=== PATIENT | male | born 1935 | race Caucasian/White ===

== ENCOUNTER 2023-10-27 13:56 | Inpatient (IN) | payer OTHER ==
[2023-10-27 15:35] LABS: #Basophils 0.1 10x3/uL (0.0-0.2); #Monocytes 0.9 10x3/uL (0.0-1.1); #Neutrophils 11.4 10x3/uL (1.5-8.4); %Basophils 0.4 % (0.0-2.0); %Eosinophils 0.1 % (0.0-6.0); %Lymphocytes 20.3 % (18.0-47.0); %Monocytes 5.6 % (0.0-10.0); %Neutrophils 72.9 % (40.0-75.0); Hematocrit 39.8 % (38.8-50.0); Hemoglobin 13.2 g/dL (13.5-17.5); Mean Corpuscular HGB CONC 33.2 g/dL (32.0-36.0); Mean Corpuscular Hemoglobin 28.4 pg (27.0-33.0); Mean Corpuscular Volume 85.6 fl (81.2-95.1); Mean Platelet Volume 12.4 fl (7.4-10.4); Platelet Count 389 10x3/uL (150-450); RBC Distribution Width 17.4 % (11.5-14.5); Red Blood Cell (RBC) Count 4.65 10x6/uL (4.32-5.72); White Blood Cell (WBC) Count 15.6 10x3/uL (3.5-10.5)
[2023-10-27 15:49] LABS: ALT (SGPT) 13 U/L (8-55); AST (SGOT) 41 U/L (5-34); Alkaline Phosphatase 401 U/L (40-110); Anion Gap 16 mmol/L (10-20); BUN (Urea Nitrogen) 39 mg/dL (8.4-25.7); Bilirubin, Total 1.4 mg/dL (0.2-1.2); Calc. Creatinine Clearance 0 mL/min (70-130); Calcium 8.7 mg/dL (7.8-10.44); Carbon Dioxide 24 mmol/L (23-31); Chloride 99 mmol/L (98-107); Estimated GFR 37; Globulin 3.5 g/dL (2.4-3.5); Glucose 140 mg/dL (83-110); Potassium 3.5 mmol/L (3.5-5.1); Protein, Total 6.5 g/dL (5.8-8.1); Sodium 135 mmol/L (136-145)
[2023-10-27 15:51] LABS: Acetaminophen Less than 10 mcg/mL (10.0-30.0); Alcohol Less than 10.0 mg/dL (Less than 10); Lipase 33 U/L (8-78); Salicylate Less than 8.0 mg/dL (15.0-30.0)
[2023-10-27 15:53] LABS: Troponin I 0.043 ng/mL (< 0.028)
[2023-10-27 16:43] LABS: Influenza A by NAA Not Detected (NotDetected); Influenza B by NAA Not Detected (NotDetected); SARS-CoV-2 NAA Rapid Test Not Detected (NotDetected)
[2023-10-27 17:33] LABS: Troponin I 0.044 ng/mL (< 0.028)
[2023-10-27] MEDS ORDERED: Dextrose 5% in Water 1,000 ML IV PRN (17:57)
[2023-10-27] MEDS ORDERED: Senokot S 8.6-50 MG TAB PO PRN (17:57)
[2023-10-27] MEDS ORDERED: Glucagon 1 MG/ML KIT IM PRN (17:57)
[2023-10-27] MEDS ORDERED: Dextrose 50% Abboject 50 ML SYRINGE SLOW IVP PRN (17:57)
[2023-10-27 18:36] LABS: Lactic Acid 1.5 mmol/L (0.5-2.2)
[2023-10-27] MEDS: Sodium Chloride 0.9% 1,000 ML IV SCH (23:01)
[2023-10-27] MEDS: Famotidine 20 MG TAB PO SCH (23:01)
[2023-10-28 00:32] VITALS: BMI 22.4
[2023-10-28 05:04] LABS: #Basophils 0.1 10x3/uL (0.0-0.2); #Monocytes 0.9 10x3/uL (0.0-1.1); #Neutrophils 10.4 10x3/uL (1.5-8.4); %Basophils 0.3 % (0.0-2.0); %Eosinophils 0.1 % (0.0-6.0); %Lymphocytes 25.5 % (18.0-47.0); %Monocytes 5.6 % (0.0-10.0); Hematocrit 38.8 % (38.8-50.0); Hemoglobin 13.1 g/dL (13.5-17.5); Mean Corpuscular HGB CONC 33.8 g/dL (32.0-36.0); Mean Corpuscular Hemoglobin 28.7 pg (27.0-33.0); Mean Corpuscular Volume 84.9 fl (81.2-95.1); Platelet Count 370 10x3/uL (150-450); RBC Distribution Width 17.3 % (11.5-14.5); Red Blood Cell (RBC) Count 4.57 10x6/uL (4.32-5.72); White Blood Cell (WBC) Count 15.3 10x3/uL (3.5-10.5)
[2023-10-28 05:09] LABS: ALT (SGPT) 11 U/L (8-55); AST (SGOT) 34 U/L (5-34); Albumin 2.7 g/dL (3.4-4.8); Alkaline Phosphatase 360 U/L (40-110); Anion Gap 13 mmol/L (10-20); BUN (Urea Nitrogen) 37 mg/dL (8.4-25.7); Bilirubin, Total 1.2 mg/dL (0.2-1.2); Calc. Creatinine Clearance 38 mL/min (70-130); Calcium 8.4 mg/dL (7.8-10.44); Carbon Dioxide 23 mmol/L (23-31); Chloride 101 mmol/L (98-107); Estimated GFR 47; Globulin 3.4 g/dL (2.4-3.5); Glucose 132 mg/dL (83-110); Potassium 3.3 mmol/L (3.5-5.1); Protein, Total 6.1 g/dL (5.8-8.1); Sodium 134 mmol/L (136-145)
[2023-10-28] MEDS: Aspirin 81 mg Enteric Coated Tablet PO SCH (09:00)
[2023-10-28] MEDS: Lactated Ringer's 1,000 ML IV SCH (10:00)
[2023-10-28] MEDS: Potassium Chloride 20 MEQ TAB PO SCH (17:00)
[2023-10-28] MEDS: Vancomycin 1.5 GRAM/300 ML BAG 1.5 GM in Premix 1 BAG IVPB SCH (17:01)
[2023-10-28] MEDS: DULoxetine 30 MG CAP PO SCH (20:39)
[2023-10-28] MEDS: Famotidine 20 MG TAB PO SCH (20:39)
[2023-10-28] MEDS: Insulin Regular 300 UNITS/3 ML VIAL SC PRN (20:42)
[2023-10-29] MEDS: Acetaminophen 325 MG TAB PO PRN (00:06)
[2023-10-29 04:38] LABS: #Basophils 0.1 10x3/uL (0.0-0.2); #Neutrophils 9.8 10x3/uL (1.5-8.4); %Basophils 0.3 % (0.0-2.0); %Eosinophils 0.2 % (0.0-6.0); %Lymphocytes 31.8 % (18.0-47.0); %Monocytes 6.3 % (0.0-10.0); Hemoglobin 12.9 g/dL (13.5-17.5); Mean Corpuscular HGB CONC 33.1 g/dL (32.0-36.0); Mean Corpuscular Hemoglobin 28.2 pg (27.0-33.0); Mean Corpuscular Volume 85.2 fl (81.2-95.1); Mean Platelet Volume 11.9 fl (7.4-10.4); Platelet Count 386 10x3/uL (150-450); RBC Distribution Width 17.5 % (11.5-14.5); Red Blood Cell (RBC) Count 4.58 10x6/uL (4.32-5.72); White Blood Cell (WBC) Count 16.1 10x3/uL (3.5-10.5)
[2023-10-29 04:41] LABS: Anion Gap 12 mmol/L (10-20); BUN (Urea Nitrogen) 31 mg/dL (8.4-25.7); Calc. Creatinine Clearance 43 mL/min (70-130); Calcium 8.7 mg/dL (7.8-10.44); Carbon Dioxide 24 mmol/L (23-31); Chloride 105 mmol/L (98-107); Estimated GFR 55; Glucose 113 mg/dL (83-110); Potassium 3.4 mmol/L (3.5-5.1); Sodium 138 mmol/L (136-145)
[2023-10-29 05:45] LABS: Bilirubin Neg (Negative); Blood, Urine Negative (Negative); Clarity Clear (Clear); Glucose, Urine (Dipstick) Normal (Negative); Ketone, Urine Negative (Negative); Leukocyte Negative (Negative); Nitrite Negative (Negative); Protein, Urine (Dipstick) 15 mg/dl (Neg-Trace); Urobilinogen Normal mg/dL (Less than 2); pH, Urine 6.5 (5.0-9.0)
[2023-10-29 06:09] LABS: Bacteria/HPF None Seen HPF (None Seen); RBC/HPF None Seen HPF (0-3); Squamous Epithelial 0-3 HPF (0-3); WBC/HPF 0-3 HPF (0-3)
[2023-10-29] MEDS: Amlodipine 10 MG TAB PO SCH (06:19)
[2023-10-29] MEDS ORDERED: Amlodipine 10 MG TAB PO SCH (09:00)
[2023-10-29] MEDS: Enoxaparin 40 MG (0.4 mL) SYRINGE SC SCH (09:07)
[2023-10-29] MEDS: Carvedilol 3.125 MG TAB PO SCH (09:07)
[2023-10-29] MEDS: Vancomycin 1 GM in Sodium Chloride 0.9% 250 ML 250 ML IVPB SCH (16:35)
[2023-10-30 05:36] LABS: #Basophils 0.1 10x3/uL (0.0-0.2); #Eosinphils 0.1 10x3/uL (0.0-0.5); #Monocytes 0.9 10x3/uL (0.0-1.1); #Neutrophils 8.5 10x3/uL (1.5-8.4); %Basophils 0.5 % (0.0-2.0); %Eosinophils 0.5 % (0.0-6.0); %Lymphocytes 31.5 % (18.0-47.0); %Monocytes 6.4 % (0.0-10.0); %Neutrophils 60.3 % (40.0-75.0); Hematocrit 39.3 % (38.8-50.0); Hemoglobin 12.6 g/dL (13.5-17.5); Mean Corpuscular HGB CONC 32.1 g/dL (32.0-36.0); Mean Corpuscular Hemoglobin 27.5 pg (27.0-33.0); Mean Corpuscular Volume 85.8 fl (81.2-95.1); Mean Platelet Volume 12.2 fl (7.4-10.4); Platelet Count 345 10x3/uL (150-450); RBC Distribution Width 17.7 % (11.5-14.5); Red Blood Cell (RBC) Count 4.58 10x6/uL (4.32-5.72); White Blood Cell (WBC) Count 14.1 10x3/uL (3.5-10.5)
[2023-10-30 05:49] LABS: Anion Gap 11 mmol/L (10-20); BUN (Urea Nitrogen) 25 mg/dL (8.4-25.7); Calc. Creatinine Clearance 54 mL/min (70-130); Calcium 8.1 mg/dL (7.8-10.44); Carbon Dioxide 27 mmol/L (23-31); Chloride 103 mmol/L (98-107); Estimated GFR 72; Glucose 123 mg/dL (83-110); Potassium 2.9 mmol/L (3.5-5.1); Sodium 138 mmol/L (136-145)
[2023-10-30] MEDS: Amlodipine 10 MG TAB PO SCH (08:37)
[2023-10-30] MEDS: Potassium Bicarbonate/Cit Ac 20 MEQ TAB PO SCH (08:40)
[2023-10-30] MEDS: Famotidine 20 MG TAB PO SCH (10:47)
[2023-10-30 16:32] LABS: Vancomycin, Trough 13.1 ug/mL
[2023-10-31 05:43] LABS: #Basophils 0.1 10x3/uL (0.0-0.2); #Eosinphils 0.1 10x3/uL (0.0-0.5); #Monocytes 0.9 10x3/uL (0.0-1.1); #Neutrophils 7.6 10x3/uL (1.5-8.4); %Basophils 0.4 % (0.0-2.0); %Eosinophils 0.5 % (0.0-6.0); %Lymphocytes 31.9 % (18.0-47.0); %Monocytes 6.8 % (0.0-10.0); %Neutrophils 59.8 % (40.0-75.0); Hematocrit 41.3 % (38.8-50.0); Mean Corpuscular HGB CONC 33.9 g/dL (32.0-36.0); Mean Corpuscular Hemoglobin 28.7 pg (27.0-33.0); Mean Corpuscular Volume 84.8 fl (81.2-95.1); Mean Platelet Volume 12.1 fl (7.4-10.4); Platelet Count 322 10x3/uL (150-450); RBC Distribution Width 17.7 % (11.5-14.5); Red Blood Cell (RBC) Count 4.87 10x6/uL (4.32-5.72); White Blood Cell (WBC) Count 12.7 10x3/uL (3.5-10.5)
[2023-10-31 06:05] LABS: Anion Gap 13 mmol/L (10-20); BUN (Urea Nitrogen) 19 mg/dL (8.4-25.7); Calc. Creatinine Clearance 57 mL/min (70-130); Calcium 8.7 mg/dL (7.8-10.44); Carbon Dioxide 22 mmol/L (23-31); Chloride 104 mmol/L (98-107); Estimated GFR 77; Glucose 133 mg/dL (83-110); Sodium 135 mmol/L (136-145)
[2023-10-31 07:10] LABS: Potassium 3.6 mmol/L (3.5-5.1)
[2023-10-31] MEDS ORDERED: Magnevist 469MG/ML 20 ML VIAL ONE ×2 (14:05)
[2023-11-01 04:56] LABS: #Basophils 0.1 10x3/uL (0.0-0.2); #Eosinphils 0.1 10x3/uL (0.0-0.5); #Monocytes 0.8 10x3/uL (0.0-1.1); #Neutrophils 7.5 10x3/uL (1.5-8.4); %Basophils 0.5 % (0.0-2.0); %Eosinophils 0.5 % (0.0-6.0); %Lymphocytes 33.5 % (18.0-47.0); %Monocytes 6.4 % (0.0-10.0); %Neutrophils 58.3 % (40.0-75.0); Hematocrit 40.1 % (38.8-50.0); Hemoglobin 13.1 g/dL (13.5-17.5); Mean Corpuscular HGB CONC 32.7 g/dL (32.0-36.0); Mean Corpuscular Hemoglobin 27.9 pg (27.0-33.0); Mean Corpuscular Volume 85.5 fl (81.2-95.1); Mean Platelet Volume 12.3 fl (7.4-10.4); Platelet Count 304 10x3/uL (150-450); RBC Distribution Width 17.9 % (11.5-14.5); Red Blood Cell (RBC) Count 4.69 10x6/uL (4.32-5.72); White Blood Cell (WBC) Count 12.8 10x3/uL (3.5-10.5)
[2023-11-01 05:00] LABS: Anion Gap 14 mmol/L (10-20); BUN (Urea Nitrogen) 20 mg/dL (8.4-25.7); Calc. Creatinine Clearance 57 mL/min (70-130); Calcium 8.4 mg/dL (7.8-10.44); Carbon Dioxide 23 mmol/L (23-31); Chloride 106 mmol/L (98-107); Estimated GFR 77; Glucose 122 mg/dL (83-110); Potassium 3.6 mmol/L (3.5-5.1); Sodium 139 mmol/L (136-145)
[2023-11-01 16:17] LABS: Vancomycin, Trough 15.6 ug/mL
[2023-11-01] MEDS: Carvedilol 6.25 MG TAB PO SCH (20:28)
[2023-11-02 04:35] LABS: #Basophils 0.1 10x3/uL (0.0-0.2); #Eosinphils 0.1 10x3/uL (0.0-0.5); #Monocytes 0.8 10x3/uL (0.0-1.1); #Neutrophils 7.6 10x3/uL (1.5-8.4); %Basophils 0.5 % (0.0-2.0); %Eosinophils 0.5 % (0.0-6.0); %Monocytes 6.7 % (0.0-10.0); %Neutrophils 60.6 % (40.0-75.0); Hemoglobin 13.2 g/dL (13.5-17.5); Mean Corpuscular Hemoglobin 28.1 pg (27.0-33.0); Mean Corpuscular Volume 85.3 fl (81.2-95.1); Mean Platelet Volume 11.8 fl (7.4-10.4); Platelet Count 281 10x3/uL (150-450); RBC Distribution Width 17.7 % (11.5-14.5); Red Blood Cell (RBC) Count 4.69 10x6/uL (4.32-5.72); White Blood Cell (WBC) Count 12.5 10x3/uL (3.5-10.5)
[2023-11-02 04:45] LABS: Anion Gap 11 mmol/L (10-20); BUN (Urea Nitrogen) 21 mg/dL (8.4-25.7); Calc. Creatinine Clearance 58 mL/min (70-130); Calcium 8.4 mg/dL (7.8-10.44); Carbon Dioxide 24 mmol/L (23-31); Chloride 107 mmol/L (98-107); Estimated GFR 79; Glucose 148 mg/dL (83-110); Potassium 3.4 mmol/L (3.5-5.1); Sodium 139 mmol/L (136-145)
[2023-11-02] MEDS: Amlodipine 10 MG TAB PO SCH (05:49)
[2023-11-02] MEDS: Carvedilol 6.25 MG TAB PO SCH ×2 (05:50→20:51)
[2023-11-02] MEDS: Aspirin 81 mg Enteric Coated Tablet PO SCH (05:50)
[2023-11-02] MEDS ORDERED: PROPOFOL 40 ML ONE (08:43)
[2023-11-03 03:45] LABS: Anion Gap 11 mmol/L (10-20); BUN (Urea Nitrogen) 20 mg/dL (8.4-25.7); Calc. Creatinine Clearance 64 mL/min (70-130); Calcium 8.3 mg/dL (7.8-10.44); Carbon Dioxide 23 mmol/L (23-31); Chloride 109 mmol/L (98-107); Estimated GFR 85; Glucose 125 mg/dL (83-110); Potassium 3.3 mmol/L (3.5-5.1); Sodium 140 mmol/L (136-145)
[2023-11-03 04:25] LABS: #Basophils 0.1 10x3/uL (0.0-0.2); #Eosinphils 0.1 10x3/uL (0.0-0.5); #Monocytes 0.7 10x3/uL (0.0-1.1); #Neutrophils 7.9 10x3/uL (1.5-8.4); %Basophils 0.6 % (0.0-2.0); %Eosinophils 0.4 % (0.0-6.0); %Lymphocytes 33.4 % (18.0-47.0); %Monocytes 5.5 % (0.0-10.0); %Neutrophils 59.8 % (40.0-75.0); Hematocrit 39.3 % (38.8-50.0); Hemoglobin 12.9 g/dL (13.5-17.5); Mean Corpuscular HGB CONC 32.8 g/dL (32.0-36.0); Mean Corpuscular Hemoglobin 28.4 pg (27.0-33.0); Mean Corpuscular Volume 86.4 fl (81.2-95.1); Mean Platelet Volume 12.2 fl (7.4-10.4); Platelet Count 301 10x3/uL (150-450); Red Blood Cell (RBC) Count 4.55 10x6/uL (4.32-5.72); White Blood Cell (WBC) Count 13.2 10x3/uL (3.5-10.5)
[2023-11-03] MEDS: Amlodipine 10 MG TAB PO SCH (09:23)
[2023-11-03] MEDS: Aspirin 81 mg Enteric Coated Tablet PO SCH (09:23)
[2023-11-03 17:00] LABS: Vancomycin, Trough 18.1 ug/mL
[2023-11-04 04:50] LABS: #Basophils 0.1 10x3/uL (0.0-0.2); #Eosinphils 0.1 10x3/uL (0.0-0.5); #Monocytes 0.8 10x3/uL (0.0-1.1); %Basophils 0.4 % (0.0-2.0); %Eosinophils 0.4 % (0.0-6.0); %Lymphocytes 32.7 % (18.0-47.0); %Monocytes 5.4 % (0.0-10.0); %Neutrophils 60.6 % (40.0-75.0); Hematocrit 40.2 % (38.8-50.0); Mean Corpuscular HGB CONC 32.3 g/dL (32.0-36.0); Mean Corpuscular Hemoglobin 27.8 pg (27.0-33.0); Mean Corpuscular Volume 85.9 fl (81.2-95.1); Mean Platelet Volume 11.6 fl (7.4-10.4); Platelet Count 314 10x3/uL (150-450); RBC Distribution Width 17.7 % (11.5-14.5); Red Blood Cell (RBC) Count 4.68 10x6/uL (4.32-5.72); White Blood Cell (WBC) Count 14.8 10x3/uL (3.5-10.5)
[2023-11-04 04:56] LABS: Anion Gap 11 mmol/L (10-20); BUN (Urea Nitrogen) 22 mg/dL (8.4-25.7); Calc. Creatinine Clearance 60 mL/min (70-130); Calcium 8.2 mg/dL (7.8-10.44); Carbon Dioxide 23 mmol/L (23-31); Chloride 108 mmol/L (98-107); Estimated GFR 82; Glucose 112 mg/dL (83-110); Potassium 3.4 mmol/L (3.5-5.1); Sodium 139 mmol/L (136-145)
[2023-11-04 16:19] LABS: Vancomycin, Trough 16.5 ug/mL
[2023-11-05 05:09] LABS: #Basophils 0.1 10x3/uL (0.0-0.2); #Eosinphils 0.1 10x3/uL (0.0-0.5); #Monocytes 0.8 10x3/uL (0.0-1.1); #Neutrophils 7.4 10x3/uL (1.5-8.4); %Basophils 0.5 % (0.0-2.0); %Eosinophils 0.4 % (0.0-6.0); %Lymphocytes 34.2 % (18.0-47.0); %Monocytes 6.4 % (0.0-10.0); Hematocrit 39.9 % (38.8-50.0); Hemoglobin 12.9 g/dL (13.5-17.5); Mean Corpuscular HGB CONC 32.3 g/dL (32.0-36.0); Mean Corpuscular Hemoglobin 27.6 pg (27.0-33.0); Mean Corpuscular Volume 85.4 fl (81.2-95.1); Mean Platelet Volume 11.3 fl (7.4-10.4); Platelet Count 279 10x3/uL (150-450); RBC Distribution Width 17.6 % (11.5-14.5); Red Blood Cell (RBC) Count 4.67 10x6/uL (4.32-5.72); White Blood Cell (WBC) Count 12.7 10x3/uL (3.5-10.5)
[2023-11-05 05:23] LABS: Anion Gap 10 mmol/L (10-20); BUN (Urea Nitrogen) 20 mg/dL (8.4-25.7); Calc. Creatinine Clearance 61 mL/min (70-130); Calcium 8.4 mg/dL (7.8-10.44); Carbon Dioxide 24 mmol/L (23-31); Chloride 106 mmol/L (98-107); Estimated GFR 83; Glucose 128 mg/dL (83-110); Potassium 3.6 mmol/L (3.5-5.1); Sodium 136 mmol/L (136-145)
[2023-11-08 05:16] LABS: #Basophils 0.1 10x3/uL (0.0-0.2); #Monocytes 0.9 10x3/uL (0.0-1.1); #Neutrophils 7.5 10x3/uL (1.5-8.4); %Basophils 0.7 % (0.0-2.0); %Eosinophils 0.2 % (0.0-6.0); %Lymphocytes 36.5 % (18.0-47.0); %Monocytes 6.6 % (0.0-10.0); %Neutrophils 55.5 % (40.0-75.0); Hematocrit 41.9 % (38.8-50.0); Hemoglobin 13.4 g/dL (13.5-17.5); Mean Corpuscular Hemoglobin 27.9 pg (27.0-33.0); Mean Corpuscular Volume 87.1 fl (81.2-95.1); Platelet Count 384 10x3/uL (150-450); RBC Distribution Width 18.1 % (11.5-14.5); Red Blood Cell (RBC) Count 4.81 10x6/uL (4.32-5.72); White Blood Cell (WBC) Count 13.5 10x3/uL (3.5-10.5)
[2023-11-08 05:36] LABS: Anion Gap 12 mmol/L (10-20); BUN (Urea Nitrogen) 22 mg/dL (8.4-25.7); CRP (Inflammatory) 1.22 mg/dL (= or < 0.5); Calc. Creatinine Clearance 58 mL/min (70-130); Calcium 8.7 mg/dL (7.8-10.44); Carbon Dioxide 24 mmol/L (23-31); Chloride 106 mmol/L (98-107); Estimated GFR 78; Glucose 92 mg/dL (83-110); Potassium 3.8 mmol/L (3.5-5.1); Sodium 138 mmol/L (136-145)
[2023-11-08 16:28] LABS: Vancomycin, Trough 17.7 ug/mL
[2023-11-10 23:57] VITALS: BP 152/70; TEMP 97.8
== END 2023-11-10 23:50 | DRG 872 ==
LOC: EEVIPCON 13:56 → CSHERS 13:56 → CSHERHOLD 18:00 → CSHTELE 21:52 → OBSVTOIN 10-28 16:01
PROVIDERS: ADMIT Family Medicine; ATTEND Internal Medicine
PROC: 02HV33Z Insertion of Infusion Device into Superior Vena Cava, Percutaneous Approach (ICD-10-PCS; principal; 2023-11-04)
PROC: B5181ZA Fluoroscopy of Superior Vena Cava using Low Osmolar Contrast, Guidance (ICD-10-PCS; 2023-11-04)
PROC: 3E04329 Introduction of Other Anti-infective into Central Vein, Percutaneous Approach (ICD-10-PCS; 2023-11-04)
PROC: B548ZZA Ultrasonography of Superior Vena Cava, Guidance (ICD-10-PCS; 2023-11-04)
DX: A41.02 Sepsis due to Methicillin resistant Staphylococcus aureus (principal); S22.081A Stable burst fracture of T11-T12 vertebra, initial encounter for closed fracture; I69.354 Hemiplegia and hemiparesis following cerebral infarction affecting left non-dominant side; N17.9 Acute kidney failure, unspecified; Z66 Do not resuscitate; I10 Essential (primary) hypertension; J44.9 Chronic obstructive pulmonary disease, unspecified; E11.9 Type 2 diabetes mellitus without complications; I95.9 Hypotension, unspecified; R79.89 Other specified abnormal findings of blood chemistry; K80.20 Calculus of gallbladder without cholecystitis without obstruction; E27.8 Other specified disorders of adrenal gland; G47.33 Obstructive sleep apnea (adult) (pediatric); N20.0 Calculus of kidney; M48.061 Spinal stenosis, lumbar region without neurogenic claudication; Z79.899 Other long term (current) drug therapy; Z79.82 Long term (current) use of aspirin; Z79.2 Long term (current) use of antibiotics; Z79.4 Long term (current) use of insulin; Z98.890 Other specified postprocedural states
CPT/HCPCS: 36415; 36416; 36569; 70450; 71045; 72157; 72158; 74176; 80048; 80053; 80202; 80307; 81001; 82140; 83605; 83690; 84145; 84484; 85025; 86140; 87040; 87077; 87086; 87149; 87186; 93005; 93306; A9579; C1751; G0378; J1650; J1815; J2704; J3370; J7050; J7120